=== PATIENT | male | born 1975 | race Two or more races ===

== ENCOUNTER 2022-12-30 17:21 | Inpatient (IN) | payer MEDICAID, OTHER ==
[~2022-12-30] VITALS: Ht 170.2 cm; Wt 79.0 kg
[2022-12-30 18:52] LABS: Basophils # (auto) 0.1 10 ^3/uL (0-0.2); Basophils % (auto) 1.3 % (0.0-2.0); Eosinophils # (auto) 0.8 10 ^3/uL (0-0.8); Eosinophils % (auto) 9.9 % (0.0-7.0); Hematocrit 42.8 % (41.0-53.0); Hemoglobin 14.6 g/dL (13.5-17.5); Lymphocytes # (auto) 2.3 10 ^3/uL (0.4-5.4); Lymphocytes % (auto) 28.1 % (10.0-50.0); Mean Corpuscular Hemoglobin 31.3 pg (28.0-32.0); Mean Corpuscular Volume 92.1 fL (80.0-100.0); Monocytes # (auto) 0.6 10 ^3/uL (0-1.3); Monocytes % (auto) 7.6 % (0.0-12.0); Neutrophils # (auto) 4.4 10 ^3/uL (1.6-8.6); Neutrophils % (auto) 53.1 % (37.0-80.0); Nucleated Red Blood Cells % 0.1 %; Red Blood Cells 4.65 10^6/uL (4.5-5.90); Red Cell Distribution Width 13.7 % (11.8-14.3); White Blood Cell 8.3 10^3/uL (4.4-10.8)
[2022-12-30 19:06] LABS: Albumin 3.5 g/dL (3.4-5.0); Calcium 8.8 mg/dL (8.5-10.1); Potassium 4.5 mmol/L (3.5-5.1)
[2022-12-30 19:10] LABS: BUN/Creatinine Ratio 15.1 (10.0-20.0); Bilirubin, Total 0.2 mg/dL (0.2-1.0); Total Protein 7.2 g/dL (6.4-8.2)
[2022-12-30] MEDS ORDERED: cefTRIAXone 1GM/50ML D5W 50 ML IV ONE (22:15)
[2022-12-30] MEDS ORDERED: AZITHROMYCIN 500MG/ 250ML 250 ML IV ONE (22:15)
[2022-12-30] MEDS ORDERED: methylPREDNISolone SOD SUCC 125 MG/2 ML VL IM ONE (22:15)
[2022-12-30] MEDS ORDERED: ACETAMINOPHEN 325 MG TAB PO PRN (23:30)
[2022-12-30] MEDS ORDERED: TEMAZEPAM 15 MG CAP PO PRN (23:30)
[2022-12-31 04:53] LABS: Albumin 3.1 g/dL (3.4-5.0); Calcium 8.9 mg/dL (8.5-10.1); Potassium 4.4 mmol/L (3.5-5.1)
[2022-12-31 04:57] LABS: BUN/Creatinine Ratio 20.7 (10.0-20.0); Bilirubin, Total 0.2 mg/dL (0.2-1.0); Total Protein 7.3 g/dL (6.4-8.2)
[2022-12-31 05:06] LABS: Basophils # (auto) 0.1 10 ^3/uL (0-0.2); Basophils % (auto) 1.2 % (0.0-2.0); Eosinophils # (auto) 0.1 10 ^3/uL (0-0.8); Eosinophils % (auto) 0.8 % (0.0-7.0); Hematocrit 40.7 % (41.0-53.0); Hemoglobin 14.1 g/dL (13.5-17.5); Lymphocytes # (auto) 0.7 10 ^3/uL (0.4-5.4); Lymphocytes % (auto) 6.3 % (10.0-50.0); Mean Corpuscular Hemoglobin 31.5 pg (28.0-32.0); Mean Corpuscular Hgb Conc. 34.6 g/dL (32.0-36.0); Mean Corpuscular Volume 90.9 fL (80.0-100.0); Monocytes # (auto) 0.1 10 ^3/uL (0-1.3); Monocytes % (auto) 0.8 % (0.0-12.0); Neutrophils # (auto) 9.5 10 ^3/uL (1.6-8.6); Neutrophils % (auto) 90.9 % (37.0-80.0); Red Blood Cells 4.47 10^6/uL (4.5-5.90); Red Cell Distribution Width 13.5 % (11.8-14.3); White Blood Cell 10.5 10^3/uL (4.4-10.8)
[2022-12-31 08:19] LABS: INR 0.99 (0.9-1.15); Partial Thromboplastin Time 26.9 sec (24.6-33.4)
[2022-12-31] MEDS ORDERED: IOHEXOL 300 MG/ML 100ML BOTTLE IJ ONE (10:05)
[2022-12-31] MEDS: cefTRIAXone 1GM/50ML D5W 50 ML IV SCH (10:22)
[2022-12-31] MEDS: AZITHROMYCIN 500MG/ 250ML 250 ML IV SCH (10:38)
[2022-12-31] MEDS: PANTOPRAZOLE 40 MG TAB PO SCH (10:38)
[2022-12-31] MEDS: HYDROcodone-ACET 5/325MG TAB PO PRN (16:48)
[2022-12-31 22:00] VITALS: BP 100/65
[2023-01-01 05:00] VITALS: BP 99/62
[2023-01-01 07:50] VITALS: BP 108/69
[2023-01-01 09:19] VITALS: BP 108/69
[2023-01-01] MEDS: AZITHROMYCIN 500MG/ 250ML 250 ML IV SCH (10:00)
[2023-01-01] MEDS: cefTRIAXone 1GM/50ML D5W 50 ML IV SCH (10:00)
[2023-01-01] MEDS: PANTOPRAZOLE 40 MG TAB PO SCH (10:00)
[2023-01-01] MEDS ORDERED: fentaNYL CITRATE 100 MCG/2 ML VL IV ONE (11:30)
[2023-01-01] MEDS ORDERED: MIDAZOLAM HCL 2MG/2ML 2ml VIAL (1mg/ml) IV ONE (11:30)
[2023-01-01 12:43] VITALS: BP 107/63
[2023-01-01] MEDS ORDERED: LIDOCAINE 2%HCL (LOCAL ANESTH.) INJ 10ml MDV ONE (13:15)
[2023-01-01] MEDS ORDERED: GELATIN 1 SPONGE SIZE 50 TOP ONE (13:48)
[2023-01-01 16:26] VITALS: BP 109/68
[2023-01-01] MEDS: HYDROcodone-ACET 5/325MG TAB PO PRN (21:37)
[2023-01-01 22:00] VITALS: BP 108/66
[2023-01-02 05:00] VITALS: BP_SYST 103; BP_SYST 138; BP_DIAS 66; BP_DIAS 74
[2023-01-02 09:07] VITALS: BP 100/62
[2023-01-02] MEDS: cefTRIAXone 1GM/50ML D5W 50 ML IV SCH (09:14)
[2023-01-02] MEDS: HYDROcodone-ACET 5/325MG TAB PO PRN (09:18)
[2023-01-02] MEDS: AZITHROMYCIN 500MG/ 250ML 250 ML IV SCH (11:02)
[2023-01-02] MEDS: PANTOPRAZOLE 40 MG TAB PO SCH (11:02)
[2023-01-02 12:31] VITALS: BP 127/82
[2023-01-02 17:21] VITALS: BP 105/72
== END 2023-01-02 18:40 | disposition home or self-care (01) | DRG 186 ==
LOC: ER 17:23 → OVERFLOW 23:32 → WEST WING 12-31 15:08
PROVIDERS: ADMIT Nurse Practitioner; ATTEND Internal Medicine
PROC: 0W993ZZ Drainage of Right Pleural Cavity, Percutaneous Approach (ICD-10-PCS; principal; 2022-12-31)
PROC: 0FB23ZX Excision of Left Lobe Liver, Percutaneous Approach, Diagnostic (ICD-10-PCS; 2023-01-01)
DX: J90 Pleural effusion, not elsewhere classified (principal); J18.9 Pneumonia, unspecified organism; R06.03 Acute respiratory distress; R59.0 Localized enlarged lymph nodes; K76.89 Other specified diseases of liver
CPT/HCPCS: 10005; 36415; 71045; 71250; 74150; 74177; 76604; 76942; 77012; 80053; 83986; 84484; 85025; 85610; 85730; 87070; 87205; 89051; G0378; J0696; J2001; J2250